=== PATIENT | female | born 1935 | race Caucasian/White ===

== ENCOUNTER → 2020-07-25 | Outpatient (CLI) | payer MEDICARE ==
--- NOTE | 2020-07-25 09:48 | US ---
EXAMINATION TYPE: US kidneys/renal and bladder DATE OF EXAM: 07/25/2020 COMPARISON: NONE CLINICAL HISTORY: N18.3 chronic kidney diease stage 3. EXAM MEASUREMENTS: Right Kidney: 8.2 x 4.2 x 3.2 cm Left Kidney: 8.7 x 4.3 x 4.1 cm Right Kidney: No hydronephrosis or masses seen. Loss of corticomedullary differentiation. Measuring s mall Left Kidney: No hydronephrosis or masses seen. Loss of corticomedullary differentiation. Measuring sm all Bladder: wnl Bilateral Jets seen: Right jet visualized There is no evidence for hydronephrosis at this point in time. No nephrolithiasis is seen. No veronica s are identified. The urinary bladder is anechoic. Right ureteral jet are seen. IMPRESSION: Correlate for medical renal disease.
== END | disposition home or self-care (01) ==
LOC: RADUSWWP 08:46
PROVIDERS: ATTEND Internal Medicine
DX: N18.3 Chronic kidney disease, stage 3 (moderate) (principal)
CPT/HCPCS: 76770

== ENCOUNTER → 2020-11-16 | Outpatient (CLI) | payer MEDICARE ==
--- NOTE | 2020-11-16 12:28 | CT ---
EXAMINATION TYPE: CT brain wo con DATE OF EXAM: 11/16/2020 COMPARISON: 12/03/2015 INDICATION: Change in mental status since fall in December. DLP: 1084.8 mGycm, Automated exposure control for dose reduction was used. CONTRAST: None CT of the brain is performed utilizing 3 mm thick sections through the posterior fossa and 3 mm thick sections through the remaining calvarium. Study is performed within 24 hours of arrival to the hosp [facility]. No abnormal hyperdensity is present to suggest an acute intracranial hemorrhage. No mass lesion is evident. No acute infarcts are evident. Periventricular white matter hypodensity is present, likely chronic wh ite matter ischemic changes Ventricles and sulci are appropriate for the patient age. There is left posterior sphenoid sinus opacification. Some calcification is within. This could be ins pissated mucus. Follow-up is recommended. IMPRESSIONS: 1. Periventricular white matter ischemic changes. 2. Inspissated mucus left sphenoid sinus. Follow-up is recommended
== END | disposition home or self-care (01) ==
LOC: RADCTMAIN 11:44
PROVIDERS: ATTEND Internal Medicine
DX: I67.82 Cerebral ischemia (principal); J34.89 Other specified disorders of nose and nasal sinuses
CPT/HCPCS: 70450

== ENCOUNTER → 2020-12-29 | Outpatient (CLI) | payer MEDICARE, OTHER ==
--- NOTE | 2020-12-29 13:42 | XR ---
EXAMINATION TYPE: XR Hip Complete LT DATE OF EXAM: 12/29/2020 CLINICAL HISTORY: pain TECHNIQUE: AP and frogleg views of the left hip are obtained. COMPARISON: None. FINDINGS: There is no acute fracture/dislocation evident. Moderate to severe degenerative joint spac e narrowing with acetabular spur formation seen. The overlying soft tissue appears unremarkable. IMPRESSION: 1. There is no acute fracture or dislocation. ICD 10 NO FRACTURE, INITIAL EVALUATION
== END | disposition home or self-care (01) ==
LOC: RADXRMAIN 13:13
PROVIDERS: ATTEND Internal Medicine
DX: M25.552 Pain in left hip (principal)
CPT/HCPCS: 73502

== ENCOUNTER → 2021-04-10 | Outpatient (CLI) | payer MEDICARE, OTHER ==
--- NOTE | 2021-04-11 12:00 | ECHOF ---
Referral Reason:R01.1 Cardiac murmur, unspecified MEASUREMENTS -------- HEIGHT: 162.6 cm WEIGHT: 83.5 kg BP: RVIDd: 3.6 cm (< 3.3) IVSd: 1.4 cm (0.6 - 1.1) LVIDd: 3.9 cm (3.9 - 5.3) LVPWd: 1.4 cm (0.6 - 1.1) IVSs: 1.5 cm LVIDs: 2.9 cm LVPWs: 1.4 cm LA Diam: 4.3 cm (2.7 - 3.8) Ao Diam: 2.7 cm (2.0 - 3.7) MV EXCURSION: 20.824 mm (> 18.000) MV EF SLOPE: 55 mm/s (70 - 150) EPSS: 0.6 cm MV E Xander: 0.43 m/s MV DecT: 221 ms MV A Xander: 0.71 m/s MV E/A Ratio: 0.61 RAP: 5.00 mmHg RVSP: 18.74 mmHg FINDINGS -------- Sinus rhythm. This was a technically good study. The left ventricular size is normal. There is moderate concentric left ventricular hypertrophy. O verall left ventricular systolic function is low-normal with, an EF between 50 - 55 %. The right ventricle is normal in size. The left atrium is mildly dilated. The right atrial size is normal. There is mild aortic valve sclerosis. There is no evidence of aortic regurgitation. Mild mitral annular calcification present. Mild mitral regurgitation is present. Mild tricuspid regurgitation present. Right ventricular systolic pressure is normal at < 35 mmHg. The pulmonic valve was not well visualized. The aortic root size is normal. There is a small, generalized pericardial effusion present. CONCLUSIONS -------- 1. The left ventricular size is normal. 2. There is moderate concentric left ventricular hypertrophy. 3. Overall left ventricular systolic function is low-normal with, an EF between 50 - 55 %. 4. The right ventricle is normal in size. 5. The left atrium is mildly dilated. 6. The right atrial size is normal. 7. There is mild aortic valve sclerosis. 8. Mild mitral annular calcification present. 9. Mild mitral regurgitation is present. 10. Mild tricuspid regurgitation present. 11. The pulmonic valve was not well visualized. 12. The aortic root size is normal. 13. There is a small, generalized pericardial effusion present. HUMANITIES DIVISION CHAIR: Karyn Mendoza RDCS
== END | disposition home or self-care (01) ==
LOC: RADECHMAIN 13:51
PROVIDERS: ATTEND Internal Medicine
DX: I08.1 Rheumatic disorders of both mitral and tricuspid valves (principal); I31.3 Pericardial effusion (noninflammatory)
CPT/HCPCS: 93306

== ENCOUNTER → 2021-09-29 | Outpatient (CLI) | payer MEDICARE, OTHER ==
--- NOTE | 2021-09-29 13:56 | MR ---
MR brain without contrast HISTORY: Memory loss, R 41.3 Multiplanar multisequence imaging through the brain, correlation to CT brain 11/16/2020 There is no restricted diffusion. Corpus callosum, pituitary, cervical medullary junction, cerebellop ontine angles are within normal limits. There is inflammatory change involving the temporal bone, sph enoid sinus, ethmoid air cells. The orbits show symmetric appearance. There is no hemorrhage or hydro cephalus. Cortical atrophy is noted. Scattered hyperintensities are present within the deep white mat ter on inversion recovery T2-weighted sequences, there are 30-40 lesions present. IMPRESSION: Age-related changes of atrophy and chronic small vessel ischemia. Sinus disease. Correlat e for mastoiditis, consider temporal bone CT for better evaluation of inflammatory changes within the temporal bone.
== END | disposition home or self-care (01) ==
LOC: RADMRIMAIN 12:29
PROVIDERS: ATTEND Psychiatry & Neurology Neurology
DX: G31.9 Degenerative disease of nervous system, unspecified (principal); I67.82 Cerebral ischemia
CPT/HCPCS: 70551

== ENCOUNTER → 2022-11-07 | Outpatient (CLI) | payer MEDICARE, OTHER ==
--- NOTE | 2022-11-07 15:41 | US ---
EXAMINATION TYPE: US carotid duplex BILAT DATE OF EXAM: 11/07/2022 COMPARISON: 2016 exam CLINICAL HISTORY: 87-year-old female R55 SYNCOPE. Syncope TECHNIQUE: Carotid duplex ultrasound examination. Indirect Doppler criteria was utilized. FINDINGS: EXAM MEASUREMENTS: RIGHT: Peak Systolic Velocity (PSV) cm/sec ----- Right CCA: 77.9 ----- Right ICA: 109.9 ----- Right ECA: 130.2 ICA/CCA ratio: 1.4 RIGHT: End Diastole cm/sec ----- Right CCA: 11 ----- Right ICA: 21.2 ----- Right ECA: 0 LEFT: Peak Systolic Velocity (PSV) cm/sec ----- Left CCA: 88.1 ----- Left ICA: 89.5 ----- Left ECA: 112.8 ICA/CCA ratio: 1.0 LEFT: End Diastole cm/sec ----- Left CCA: 14 ----- Left ICA: 16.9 ----- Left ECA: 0 VERTEBRALS (direction of flow): Right Vertebral: Antegrade Left Vertebral: Antegrade Rhythm: Normal PHOTORESIST CONTACT PRINTER NOTES: No significant stenosis seen There is mild atelectatic change at both bifurcations. IMPRESSION: No hemodynamically significant internal carotid artery stenosis on either side. Criteria for Assigning % of Stenosis / Diameter reduction (Estimation based on the indirect measurements of the internal carotid artery velocities (ICA PSV). 1. Normal (no stenosis)=ICA PSV < 125 cm/s: ratio < 2.0: ICA EDV<40 cm/s. 2. Less than 50% stenosis=ICA PSV < 125 cm/s: ratio < 2.0: ICA EDV<40 cm/s. 3. 50 to 69% stenosis=ICA PSV of 125 to 230 cm/s: ration 2.0 ? 4.0: ICA EDV 40-100 cm/s. 4. Greater than 70% stenosis to near occlusion= ICA PSV > 230 cm/s: ratio > 4.0: ICA EDV > 100 cm/s. 5. Near occlusion= ICA PSV velocities may be low or undetectable: variable ratio and ICA EDV. 6. Total occlusion=unable to detect flow.
== END | disposition home or self-care (01) ==
LOC: RADUSWWP 10:52
PROVIDERS: ATTEND Family Medicine
DX: R55 Syncope and collapse (principal)
CPT/HCPCS: 93270; 93880

== ENCOUNTER → 2022-12-02 | Outpatient (CLI) | payer MEDICARE, OTHER ==
--- NOTE | 2022-12-02 14:51 | CT ---
EXAMINATION TYPE: CT brain wo con DATE OF EXAM: 12/02/2022 COMPARISON: 11/16/2020 HISTORY: Contusion of other part of head CT DLP: 1195 mGycm Automated exposure control for dose reduction was used. FINDINGS: There is an extra-axial 8 mm mass along the right parietal convexity superiorly. No midline shift or mass effect. Mild generalized degenerative change. Low attenuation in the periven tricular white matter most typical of remote microvascular ischemia. No acute hemorrhage or mass effe ct. Calvarium intact. IMPRESSION: 1. DEGENERATIVE AND NONSPECIFIC WHITE MATTER CHANGE MOST TYPICAL REMOTE ISCHEMIA WITH NO EVIDENCE OF ACUTE HEMORRHAGE OR MASS EFFECT. 2. 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
== END | disposition home or self-care (01) ==
LOC: RADCTMAIN 13:49
PROVIDERS: ATTEND Family Medicine
DX: S00.83XD Contusion of other part of head, subsequent encounter (principal); R90.82 White matter disease, unspecified
CPT/HCPCS: 70450

== ENCOUNTER 2024-01-01 11:45 | Emergency (ER) | payer MEDICARE, OTHER ==
--- NOTE | 2024-01-01 12:35 | ED ---
General Adult HPI - General Chief complaint: Fall Stated complaint: Fall, back injury Time Seen by Provider: 01/01/24 11:54 Source: patient, RN notes reviewed Mode of arrival: ambulatory Limitations: no limitations - History of Present Illness Initial comments: Patient is an 88-year-old female presenting to the emergency room today with a chief complaint of a fall that occurred 4 days ago. Patient does admit that she lost her balance going into the corner of 2 torres. Patient does admit that she hit the left side of the ribs. Denies strike her head. Did not lose conscious. States not on any blood thinners. Patient does admit to pain to the left side of the ribs. As she states that the last few days it was worse. However, she actually has feeling better today so she went to an urgent care for evaluation but was directed here to the ER. Patient states pain was definitely worse with movements. Still has some discomfort. Denies any shortness of breath, chest pain, back pain, nausea or vomiting, abdominal pain. - Related Data Home Medications Medication Instructions Recorded Confirmed Florecita-Polo Severe Sinus & Cold 1 tab PO Q4-6H PRN 12/03/15 12/04/15 Levothyroxine Sodium [Synthroid] 75 mcg PO DAILY 12/03/15 12/04/15 Metoprolol Succinate (ER) [Toprol 50 mg PO DAILY 12/03/15 12/04/15 Xl] Previous Rx's Medication Instructions Recorded Folic Acid 1 mg PO DAILY@1200 #30 tab 12/05/15 HYDROcodone/APAP 5-325MG [Bevington 1 each PO Q6HR PRN #20 tab 12/05/15 5-325] Remington Carbonate [Remington 225 mg PO BID #0 12/05/15 Carbonate ER] Multivitamins, Thera [Multivitamin 1 each PO DAILY@1200 #30 tab 12/05/15 (formulary)] Thiamine [Vitamin B-1] 100 mg PO DAILY@1200 #30 tab 12/05/15 Allergies Allergy/AdvReac Type Severity Reaction Status Date / Time No Known Allergies Allergy Verified 12/03/15 13:40 Review of Systems ROS Statement: Those systems with pertinent positive or pertinent negative responses have been documented in the HPI. ROS Other: All systems not noted in ROS Statement are negative. Past Medical History Past Medical History: Hypertension, Thyroid Disorder History of Any Multi-Drug Resistant Organisms: None Reported Past Surgical History: Cholecystectomy, Tonsillectomy Past Psychological History: Bipolar Past Alcohol Use History: None Reported Past Drug Use History: None Reported General Exam - General Exam Comments Initial Comments: General: The patient is awake and alert, in no distress, and does not appear acutely ill. Eye: Extra-ocular movements are intact. There is normal conjunctiva bilaterally. No signs of icterus. Ears, nose, mouth and throat: There are moist mucous membranes and no oral lesions. Neck: The neck is supple, there is no tenderness or JVD. Cardiovascular: There is a regular rate and rhythm. Respiratory: Lungs are clear to auscultation, respirations are non-labored, breath sounds are equal. No wheezes, stridor, rales, or rhonchi. Gastrointestinal: Soft on palpation. Nontender. No rebound, guarding. Musculoskeletal: Normal ROM of extremities. No bony tenderness. Patient does have tenderness to the anterior left lower ribs. No step-off or deformity. Neurological: A&O x 3. CN II-XII intact, There are no obvious motor or sensory deficits. Coordination appears grossly intact. Speech is normal. Skin: Skin is warm and dry and no rashes or lesions are noted. Psychiatric: Cooperative, appropriate mood & affect, normal judgment. Limitations: no limitations Course Vital Signs 01/01/24 11:48 Temperature 98.2 F Pulse Rate 58 L Respiratory 16 Rate Blood Pressure 160/64 O2 Sat by Pulse 100 Oximetry Medical Decision Making - Medical Decision Making History was obtained from patient/Nurse/Friend Initial assessment and chief complaint: Fall, rib pain Chronic conditions affecting care: Thyroid disease, hypertension Social determinants affecting care: None Differential diagnosis included, but not limited to: Rib fracture, pneumothorax, pneumonia, muscle strain, rib contusion Any imaging that may have been performed was also reviewed. I did an independent interpretation of the patient's imaging. My interpretation of x-ray was reviewed does show possible nondisplaced rib fracture of the sixth and seventh rib. 88-year-old female presented to the emergency room today with a chief complaint of a fall that occurred 4 days ago. She does admit that she was having tenderness over the left ribs. She states she actually does feel better today. Patient's vitals have been stable. She denies feeling short of breath. Lung sounds are good in all murcia. Chest x-ray is obtained. Evidence for 2 subtle nondisplaced rib fractures were seen. Results were discussed with the patient. Patient has no abdominal tenderness. Abdomen soft nontender. She is resting comfortably. Vitals have remained stable. Will be discharged home. Has not been using anything for pain. Was discussed about Tylenol if needed. A incentive spirometer was also given to the patient. Advised to follow with her PCP. Advised return if any symptoms increase or worsen or for any other concerns. States understanding and is in agreement with the plan. Disposition Clinical Impression: Rib fractures Disposition: HOME SELF-CARE Condition: Good Additional Instructions: Please use incentive spirometer and Tylenol for pain as discussed. Return for any other concerns. Is patient prescribed a controlled substance at d/c from ED?: No Referrals: Amara Santos MD [Primary Care Provider] - 1-2 days Time of Disposition: 13:37
--- NOTE | 2024-01-01 13:03 | XR ---
EXAMINATION TYPE: XR ribs LT w pa chest xray, 3 views DATE OF EXAM: 01/01/2024 Comparison: 12/03/2015 Clinical History: 88-year-old female with pain after fall Findings: Heart upper limits of normal in size. Aorta and pulmonary vasculature are within normal limits. Simil ar prominent hilar vascularity compared to 2016. Similar eventration anterior right hemidiaphragm. No consolidation or pleural effusion. Subtle cortical irregularity involving the left lateral sixth rib. Possibly the left lateral seventh rib as well. No displaced rib fracture seen. Impression: 1. Subtle nondisplaced left lateral sixth rib fracture. Possibly nondisplaced fracture left lateral s eventh rib as well. 2. Chronic eventration anterior right hemidiaphragm. Otherwise, no acute cardiopulmonary process.
[2024-01-01 14:09] VITALS: BP 150/79; PULSE 56; RESP 18; TEMP 98.3
== END 2024-01-01 13:44 | disposition home or self-care (01) ==
LOC: EC 11:45
DX: S22.32XA Fracture of one rib, left side, initial encounter for closed fracture (principal); I10 Essential (primary) hypertension; E07.9 Disorder of thyroid, unspecified; Z79.890 Hormone replacement therapy; Z79.899 Other long term (current) drug therapy; W01.0XXA Fall on same level from slipping, tripping and stumbling without subsequent striking against object, initial encounter; Y92.009 Unspecified place in unspecified non-institutional (private) residence as the place of occurrence of the external cause
CPT/HCPCS: 99283

== ENCOUNTER → 2024-06-09 | Outpatient (CLI) | payer MEDICARE, OTHER ==
[2024-06-09 14:18] VITALS: BP 195/75; PULSE 63; RESP 16; TEMP 97.7
[2024-06-09] MEDS: ZOLEDRONIC ACID 4 MG in SODIUM CHLORIDE 0.9% 100 ML IV NR (14:24)
[2024-06-09] MEDS: SODIUM CHLORIDE 0.9% 500 ML 500 ML in EMPTY BAG 1 BAG IV PRN (14:24)
== END ==
LOC: PROCWHC3 13:41
PROVIDERS: ATTEND Nurse Practitioner Family
DX: E83.52 Hypercalcemia (principal)
CPT/HCPCS: 96365; J3489